=== PATIENT | male | born 1945 | race Caucasian/White ===

== ENCOUNTER 2018-06-12 16:54 | Outpatient (CLI) | payer BC, OTHER | END 2018-06-12 20:31 | disposition home or self-care (01) | LOC: SRD 16:54 | PROVIDERS: ATTEND Internal Medicine | DX: K43.9 Ventral hernia without obstruction or gangrene (principal); I70.0 Atherosclerosis of aorta; I77.811 Abdominal aortic ectasia; M41.9 Scoliosis, unspecified | CPT/HCPCS: 72072-TC; 72110; 76700-TC; 76856-TC; 76857 ==

== ENCOUNTER 2018-06-13 09:00 | Outpatient (CLI) | payer BC ==
[2018-06-13] MEDS ORDERED: IOHEXOL 100 ML IV ONE (09:29)
== END 2018-06-13 19:41 | disposition home or self-care (01) ==
LOC: SCT 09:00
PROVIDERS: ATTEND Internal Medicine
DX: I65.29 Occlusion and stenosis of unspecified carotid artery (principal)
CPT/HCPCS: 70470; Q9967

== ENCOUNTER 2018-06-17 16:01 | Outpatient (CLI) | payer BC | END 2018-06-17 21:25 | disposition home or self-care (01) | LOC: SCT 16:01 | PROVIDERS: ATTEND Internal Medicine | DX: K57.90 Diverticulosis of intestine, part unspecified, without perforation or abscess without bleeding (principal); K46.9 Unspecified abdominal hernia without obstruction or gangrene; I77.811 Abdominal aortic ectasia ==